=== PATIENT | female | born 1985 | race Caucasian/White ===

== ENCOUNTER 2016-11-29 21:14 | Outpatient (CLI) | payer OTHER, MEDICAID ==
[~2016-11-29] VITALS: Ht 162.6 cm; Wt 84.5 kg
[2016-11-29 21:46] VITALS: BP 162/97; PULSE 93; TEMP 98.4
[2016-11-29] MEDS ORDERED: PRENATAL1 TA7 PO (21:46)
[2016-11-29 22:00] VITALS: BP 117/70; PULSE 90
[2016-11-29 22:20] VITALS: BP 121/67; PULSE 90
[2016-11-29 22:35] VITALS: BP 114/57; PULSE 89
== END 2016-11-29 23:00 | disposition home or self-care (01) ==
LOC: LDRO 21:14
DX: O47.1 False labor at or after 37 completed weeks of gestation (principal); Z3A.38 38 weeks gestation of pregnancy

== ENCOUNTER 2016-12-01 06:59 | Inpatient (IN) | payer OTHER, MEDICAID ==
[~2016-12-01] VITALS: Ht 162.6 cm; Wt 84.5 kg
[2016-12-01] VITALS (55 sets, daily range): BP systolic 124–156; BP diastolic 56–91; PULSE 77–155; TEMP 98.2–99.9
[~2016-12-01 06:59] MED LIST: PRENATAL1 TA7 PO
[2016-12-01 07:57] LABS: BASO % 0.2 % (0.0-2.0); EOS # 0.1 (0.0-0.7); EOS % 0.5 % (0-4.0); GRAN # 8.3 (1.4-6.5); HEMATOCRIT 33.9 % (37.0-47.0); HEMOGLOBIN 11.4 g/dl (12.5-16.0); LYMPH # 1.3 (1.2-3.4); LYMPH % 12.2 % (20.0-51.0); MEAN CELL VOLUME 85 fl (80.0-100.0); MEAN CORPUSCULAR HEMOGLOBIN 29 pg (27.0-31.0); MEAN CORPUSCULAR HGB CONC 34 g/dl (33.0-37.0); MEAN PLATELET VOLUME 11.6 fl (7.4-10.4); MONO # 0.8 (0.1-0.6); MONO % 7.4 % (1.7-9.3); PLATELET COUNT 158 K/mm3 (130-400); REDCELL DISTRIBUTION WIDTH-CV 14.1 % (11.5-14.5); WHITE BLOOD COUNT 10.5 K/mm3 (4.8-10.8)
[2016-12-02 03:00] VITALS: BP 135/85; PULSE 109; TEMP 98.6
[2016-12-02 08:00] VITALS: BP 131/80; PULSE 108; TEMP 98.4
[2016-12-02] MEDS ORDERED: IBU600 MG PO (08:28)
[2016-12-02] MEDS ORDERED: PERCOCET 325 MG1 TA2 PO (08:28)
[2016-12-02 12:47] VITALS: BP 128/79; PULSE 99; TEMP 98.2
[2016-12-02 17:45] VITALS: BP 119/76; PULSE 86; TEMP 98.2
[2016-12-02 20:00] VITALS: BP 130/80; PULSE 90; TEMP 98.3
== END 2016-12-02 20:38 | disposition home or self-care (01) | DRG 775 ==
LOC: LDR 06:59 → OB 22:15
PROVIDERS: Obstetrics & Gynecology
PROC: 10E0XZZ Delivery of Products of Conception, External Approach (ICD-10-PCS; principal; 2016-12-01)
PROC: 3E033VJ Introduction of Other Hormone into Peripheral Vein, Percutaneous Approach (ICD-10-PCS; 2016-12-01)
DX: O13.3 Gestational [pregnancy-induced] hypertension without significant proteinuria, third trimester (principal); Z3A.39 39 weeks gestation of pregnancy; Z37.0 Single live birth
CPT/HCPCS: J2590; J7120

== ENCOUNTER 2019-09-30 11:55 | Inpatient (IN) | payer OTHER, MEDICAID ==
[~2019-09-30] VITALS: Ht 162.6 cm; Wt 83.2 kg
[~2019-09-30 11:55] MED LIST changes: +IBU600 MG PO; +PERCOCET 325 MG1 TA2 PO
[2019-10-08] VITALS (55 sets, daily range): BP systolic 120–1334; BP diastolic 59–90; PULSE 69–116; TEMP 97.9–98.1
[2019-10-08 08:26] LABS: BASO % 0.1 % (0.0-2.0); EOS # 0.1 (0.0-0.7); EOS % 0.8 % (0-4.0); GRAN # 7.2 (1.4-6.5); HEMOGLOBIN 11.6 g/dl (12.5-16.0); LYMPH # 1.2 (1.2-3.4); LYMPH % 12.9 % (20.0-51.0); MEAN CELL VOLUME 87 fl (80.0-100.0); MEAN CORPUSCULAR HEMOGLOBIN 28 pg (27.0-31.0); MEAN CORPUSCULAR HGB CONC 33 g/dl (33.0-37.0); MEAN PLATELET VOLUME 11.3 fl (7.4-10.4); MONO # 0.7 (0.1-0.6); MONO % 7.5 % (1.7-9.3); PLATELET COUNT 158 K/mm3 (130-400); RED BLOOD COUNT 4.08 M/mm3 (4.10-5.30)
[2019-10-08 08:36] LABS: HEMATOCRIT 35.5 % (37.0-47.0)
[2019-10-08] MEDS ORDERED: ASPIRIN E.C. 8181 MG PO (09:52)
[2019-10-09 01:45] VITALS: BP 119/72; PULSE 104; TEMP 98.2
[2019-10-09] MEDS ORDERED: IBU600 MG PO (09:08)
[2019-10-09 10:00] VITALS: BP 132/75; PULSE 80; TEMP 98.2
[2019-10-09 15:03] VITALS: BP 141/85; PULSE 86; TEMP 98.4
[2019-10-09 20:45] VITALS: BP 116/72; PULSE 79; TEMP 98.2
== END 2019-10-09 22:07 | disposition home or self-care (01) | DRG 807 ==
LOC: LDR 10-08 07:21 → OB 10-08 07:21 → LDR 10-08 11:54 → OB 10-08 23:52
PROVIDERS: ADMIT Obstetrics & Gynecology
PROC: 10E0XZZ Delivery of Products of Conception, External Approach (ICD-10-PCS; principal; 2019-10-08)
PROC: 3E033VJ Introduction of Other Hormone into Peripheral Vein, Percutaneous Approach (ICD-10-PCS; 2019-10-08)
PROC: 10907ZC Drainage of Amniotic Fluid, Therapeutic from Products of Conception, Via Natural or Artificial Opening (ICD-10-PCS; 2019-10-08)
DX: O66.0 Obstructed labor due to shoulder dystocia (principal); Z37.0 Single live birth; O69.1XX0 Labor and delivery complicated by cord around neck, with compression, not applicable or unspecified; Z3A.40 40 weeks gestation of pregnancy; Z23 Encounter for immunization
CPT/HCPCS: J2590; J2795; J7120